=== PATIENT | male | born 1955 | race Caucasian/White ===

== ENCOUNTER → 2023-10-26 06:24 | Day surgery (SDC) | payer MEDICARE, OTHER, SELFPAY | LOC: GI 06:24 | PROVIDERS: ATTENDING PHYSICIAN Internal Medicine | DX: K63.5 Polyp of colon (principal); K63.89 Other specified diseases of intestine; K57.30 Diverticulosis of large intestine without perforation or abscess without bleeding; K64.9 Unspecified hemorrhoids; Z87.19 Personal history of other diseases of the digestive system | CPT/HCPCS: 45380; 88305 ==

== ENCOUNTER 2024-01-08 19:21 | Emergency (ER) | payer MEDICARE, OTHER, SELFPAY ==
[2024-01-08 19:24] VITALS: BP 143/79
[2024-01-08 20:00] LABS: % Basophils 0.2 % (0-2); % Immature Granulocytes 0.7 % (0-0.5); % Lymphocytes 3.5 % (20.5-51.1); % Monocytes 5.5 % (1.7-9.3); % Neutrophils 90.1 % (42.2-75.2); Absolute Immature Granulocytes 0.1 10^3/uL (0-0.05); Absolute Lymphocytes 0.4 10^3/uL (1.2-3.4); Absolute Monocytes 0.7 10^3/uL (0.1-0.6); Absolute Neutrophils 10.9 10^3/uL (1.4-6.5); Hematocrit 44.2 % (39.0-52.0); Mean Corp Hgb Conc. 33.9 g/dL (33.0-37.0); Mean Corpuscular Hgb 28.8 pg (27.0-31.0); Mean Corpuscular Volume 84.8 fL (80.0-94.0); Mean Platelet Volume 10.2 fL (7.4-10.4); Nucleated Red Blood Cells % 0 % (-); Platelet Count 105 10^3/uL (130-400); Red Blood Cell Count 5.21 10^6/uL (4.70-6.10); Red Cell Dist. Width 13.5 % (11.5-14.5); White Blood Cell Count 12.1 10^3/uL (4.8-10.8)
[2024-01-08 20:15] LABS: ALT (SGPT) 371 U/L (0-50); AST (SGOT) 242 U/L (17-59); Albumin 3.7 g/dl (3.5-5.0); Alkaline Phosphatase 48 U/L (38-126); Blood Urea Nitrogen 57 mg/dl (9-20); Calcium 8.5 mg/dl (8.4-10.2); Carbon Dioxide 19 mmol/L (22-30); Chloride 102 mmol/L (98-107); Glucose 145 mg/dl (70-99); Lipase 173 U/L (23-300); Potassium 4.4 mmol/L (3.5-5.1); Sodium 129 mmol/L (135-145); Total Protein 6.5 g/dl (6.3-8.2); eGFR 16.11
[2024-01-08 20:48] VITALS: BMI 34.5
--- NOTE | 2024-01-08 20:55 | EDRN ---
Pt had abdominal pain yesterday for 8 hours with pain radiating in between his shoulder bladers. Pt feels he empties his bladder when he urinates but notes it is darker and cloudier. No blood in urine. Pt came to ED because now because he waited
too long in July and was dehydrated. Pt has been drinking more water to try and clear it up. Chills, no fever. No sob, cp, abd pain now, dizziness, weakness, n/v/d/constipation.
--- NOTE | 2024-01-08 21:10 | ED.GENMED ---
History of Present Illness
General
Chief Complaint: Abdominal Pain
Source: patient
Exam Limitations: none
Time Seen by Provider: 01/08/24 20:48
Travel History
Have you had any contact with someone who has COVID-19?: No
Do you have any symptoms of coronavirus? Fever > 100 degrees, chills, cough, shortness of breath, sore throat, loss of taste or smell, muscle aches, or headache?: Yes
Symptoms:: fever, cough
History of Present Illness
History of Present Illness:
68-year-old male with history of chronic kidney disease presents with abdominal pain and shoulder blade pain starting yesterday. He also noted darker colored urine that was cloudy. He noted chills. He still does not feel quite well. His urine
has not cleared despite drinking plenty clear liquids. Abdominal pain has calmed down. The pain in the shoulder blades was not pleuritic. No other complaints at this time
Past History
Past History
ED Past Medical History: Cancer, HTN and Other (prostate CA, DVT, Polycystic kidney disease, diverticulosis)
ED Past Surgical History: Other (Prostatectomy)
Social History
Tobacco: Former smoker
Alcohol: None
Personal:
Living: with family
Phy Exam
Physical Exam
Physical Exam:
General: Well-appearing male no acute respiratory distress
HEENT: NC, sclera icteric
Heart; RRR, no murmurs
Lungs; CTA clear, no wheeze
Abdomen is slightly distended grossly nontender normal bowel sounds no guarding no costovertebral angle tenderness
Extremities: No cyanosis
Skin: Slightly jaundiced
Course
Orders/Labs/Results
Orders:
Orders
01/08/24 19:55
Complete Blood Count/With Diff Urgent
Comprehensive Metabolic Panel Urgent
Lipase Urgent
01/08/24 21:08
Urinalysis Reflex To Culture Urgent
Date Specimen was Collected: 01/08/24
Time Specimen was Collected: 21:05
Urine Microscopic Reflex Cult Urgent
US Abdomen Complete/Upper Urgent
Comment:
Reason For Exam: abodminal pain, elevated LFT
01/08/24 21:15
0.9% Sodium Chloride 500 ml [Nss] 500 ml IV BOLUS
01/08/24 22:52
EKG [Electrocardiogram (*1)] Urgent
Reason for Study: Palpitations
EKG- Treatment ONCE
01/08/24 23:04
CT Abd/pel Without Iv Or Oral Urgent
Comment:
Reason For Exam: abdominal and back pain
Abnormal Lab Results
01/08/24 01/08/24
19:55 21:08
WBC 12.1 H 10^3/uL
(4.8-10.8)
Plt Count 105 L 10^3/uL
(130-400)
Abs Immat Gran (auto) 0.1 H 10^3/uL
(0-0.05)
Absolute Neuts (auto) 10.9 H 10^3/uL
(1.4-6.5)
Absolute Lymphs (auto) 0.4 L 10^3/uL
(1.2-3.4)
Absolute Monos (auto) 0.7 H 10^3/uL
(0.1-0.6)
Immature Gran % 0.7 H %
(0-0.5)
Neutrophils % 90.1 H %
(42.2-75.2)
Lymphocytes % 3.5 L %
(20.5-51.1)
Sodium 129 L mmol/L
(135-145)
Carbon Dioxide 19 L mmol/L
(22-30)
BUN 57 H mg/dl
(9-20)
Creatinine 3.9 H mg/dL
(0.7-1.3)
Glucose 145 H mg/dl
(70-99)
Total Bilirubin 6.0 H mg/dl
(0.2-1.3)
AST 242 H U/L
(17-59)
ALT 371 H U/L
(0-50)
Ur Occult Blood Reflex 1+ A
(Negative)
Urine Bilirubin 1+ A
(Negative)
Urine Urobilinogen 2+ A
(Neg - 1+)
Leukocyte Esterase Rfl Trace A
(Negative)
Urine Bacteria (Reflex) Few A
(Negative)
01/08/24 19:55
01/08/24 19:55
Vital Signs
Initial and Last Documented VS:
Initial Vital Signs
Temp Pulse Resp BP Pulse Ox
98.9 F 114 18 143/79 96
01/08/24 19:24 01/08/24 19:24 01/08/24 19:24 01/08/24 19:24 01/08/24 19:24
Last Documented Vital Signs
Temp Pulse Resp BP Pulse Ox
98.9 F 82 24 106/73 96
01/08/24 19:24 01/09/24 00:59 01/08/24 21:18 01/09/24 00:59 01/08/24 19:24
MDM/Problems Addressed
Differential Diagnosis Includes:
Abdominal pain with jaundice. Cholecystitis with choledocholithiasis. Lipase normal. I reviewed prior hospital records. Creatinine today is at baseline 3.9. Bilirubin and transaminases are elevated which is new. Ultrasound abdomen pending
*Critical Care Note
Total Time (30-74mins, 75-104mins- exclusive of procedures): Not Applicable
Update Note
Update Note:
Ultrasound shows cholelithiasis without cholecystitis. Patient does have bilirubin of [address] of the abdomen showed cholelithiasis without cholecystitis. He has also shown known polycystic kidney disease. Patient
reexamined feeling much better pain-free. He has stable vital signs. Will discharge home with close follow-up with GI. Return precautions were given. This is biliary colic as a source of his pain.
ED Attending Note
-
Portions of this chart may have been created with voice recognition software.� Occasional wrong word or��sound alike� substitutions may have occurred due to the inherent limitations of voice recognition software.
Discharge Plan
Departure
Patient Disposition: Home (Routine Discharge)
Date of Disposition: 01/09/24
Time of Disposition: 01:21
Patient with high blood pressure during this ER visit?: No
Discharge Problem:
Biliary colic
Instructions: Gallstones (DC)
Prescriptions:
No Action
omeprazole 40 MG capsule,delayed release(DR/EC)
40 mg PO DAILY
Xarelto 10 MG tablet
10 mg PO QPM Qty: 60 0RF
telmisartan [Micardis] 40 MG tablet
40 mg PO DAILY Qty: 30 1RF
Hold Instructions: Resume on 08/01/23.
Referrals:
Baudilio Carney, [Family Provider] -
Activity Restrictions/Additional Instructions:
The GI office should be calling you to set an appointment. Please return here for worsening symptoms including pain vomiting increased jaundice findings otherwise
Interventions
Interventions:
*Risk Screen - Suicide Last Done: 01/08/24 19:24
*General Assessment Last Done: 01/08/24 19:24
*Neglect/Abuse Screening Last Done: 01/08/24 19:24
ED- Fall Risk Assessment Last Done: 01/08/24 21:19
*ED COVID-19 Vaccine History Last Done: 01/08/24 20:40
LJ-Otybxk-Pntnaxkfux Assessment Last Done: 01/08/24 21:00
Discharge Date and Time
Print Language: KENYAN
[2024-01-08 21:13] LABS: Urine Albumin Trace (Neg - Trace); Urine Bilirubin 1+ (Negative); Urine Character Clear (Clear); Urine Color Yellow; Urine Glucose Negative (Negative); Urine Ketone Negative (Negative); Urine Leukocyte Trace (Negative); Urine Nitrite Negative (Negative); Urine Occult Blood 1+ (Negative); Urine Urobilinogen 2+ (Neg - 1+)
[2024-01-08] MEDS: NSS 500 IV (21:16)
[2024-01-08 21:18] VITALS: BP 130/73
[2024-01-08 21:21] LABS: Urine Bacteria Few (Negative); Urine Red Blood Cell 0-2 /HPF (0-2); Urine Squamous Cell 0-2 /LPF (Few)
[2024-01-08 22:36] VITALS: BP 136/76
[2024-01-09 00:59] VITALS: BP 106/73
== END 2024-01-09 01:50 | disposition home or self-care (01) ==
LOC: EMR 19:21
PROVIDERS: Emergency Medicine; Physician Assistant; EMERGENCY PHYSICIAN Emergency Medicine; FAMILY PHYSICIAN Family Medicine
DX: K80.70 Calculus of gallbladder and bile duct without cholecystitis without obstruction (principal); M25.519 Pain in unspecified shoulder; I12.9 Hypertensive chronic kidney disease with stage 1 through stage 4 chronic kidney disease, or unspecified chronic kidney disease; N18.9 Chronic kidney disease, unspecified; Q61.3 Polycystic kidney, unspecified; K57.90 Diverticulosis of intestine, part unspecified, without perforation or abscess without bleeding; Z79.01 Long term (current) use of anticoagulants; Z85.46 Personal history of malignant neoplasm of prostate; Z86.718 Personal history of other venous thrombosis and embolism; Z87.891 Personal history of nicotine dependence; Z90.79 Acquired absence of other genital organ(s); Z88.3 Allergy status to other anti-infective agents; Z88.0 Allergy status to penicillin
CPT/HCPCS: 99285; 96360; 74176; 76700; 80053; 81003; 81015; 83690; 85025; 93005

== ENCOUNTER 2024-03-11 01:19 | Inpatient (IN) | payer MEDICARE, OTHER, SELFPAY ==
[2024-03-10 15:59] VITALS: BMI 33.1
[2024-03-10 16:03] VITALS: BP 175/101
[2024-03-10 16:19] LABS: % Basophils 0.2 % (0-2); % Eosinophils 0.1 % (0-6); % Immature Granulocytes 0.4 % (0-0.5); % Lymphocytes 8.5 % (20.5-51.1); % Monocytes 3.9 % (1.7-9.3); % Neutrophils 86.9 % (42.2-75.2); Absolute Immature Granulocytes 0.1 10^3/uL (0-0.05); Absolute Lymphocytes 1.1 10^3/uL (1.2-3.4); Absolute Monocytes 0.5 10^3/uL (0.1-0.6); Absolute Neutrophils 11.2 10^3/uL (1.4-6.5); Hematocrit 44.3 % (39.0-52.0); Hemoglobin 14.6 g/dL (13.0-18.0); Mean Corpuscular Hgb 28.6 pg (27.0-31.0); Mean Corpuscular Volume 86.7 fL (80.0-94.0); Mean Platelet Volume 9.9 fL (7.4-10.4); Nucleated Red Blood Cells % 0 % (-); Platelet Count 191 10^3/uL (130-400); Red Blood Cell Count 5.11 10^6/uL (4.70-6.10); Red Cell Dist. Width 14.4 % (11.5-14.5); White Blood Cell Count 12.9 10^3/uL (4.8-10.8)
[2024-03-10 16:36] LABS: ALT (SGPT) 17 U/L (0-50); AST (SGOT) 23 U/L (17-59); Albumin 4.5 g/dl (3.5-5.0); Alkaline Phosphatase 45 U/L (38-126); Blood Urea Nitrogen 64 mg/dl (9-20); Calcium 9.5 mg/dl (8.4-10.2); Carbon Dioxide 17 mmol/L (22-30); Chloride 108 mmol/L (98-107); Glucose 137 mg/dl (70-99); Lipase 168 U/L (23-300); Potassium 5.1 mmol/L (3.5-5.1); Sodium 138 mmol/L (135-145); Total Bilirubin 1.1 mg/dl (0.2-1.3); Total Protein 7.6 g/dl (6.3-8.2); eGFR 17.16
[2024-03-10 18:34] VITALS: BP 140/93
--- NOTE | 2024-03-10 18:40 | ED.GENMED ---
History of Present Illness
General
Chief Complaint: Abdominal Pain
Source: patient
Exam Limitations: none
Time Seen by Provider: 03/10/24 17:55
History of Present Illness
History of Present Illness:
this is a 68 year old male that comes in with c/o gallbladder attack. states that he thinks he is having a gallbladder attack. States that he was here 6 weeks ago and told that he had gallstones. Today he has increased pain which started yesterday
afternoon. States that his abd is also distended. State that he has a low grade fever and chills. States that he was also nauseated. Denies any chest pain, SOB, vomiting, diarrhea, headache, dizziness, urinary burning.
Past History
Past History
ED Past Medical History: Cancer (Prostate CA), GERD, HTN and Other ( DVT, Polycystic kidney disease, diverticulosis)
ED Past Surgical History: Tonsilectomy and Urological (Prostatectomy)
Social History
Tobacco: Former smoker
Alcohol: Occasional
Personal:
Living: with family
Review of Systems
Review of Systems
All Other Systems: ROS reviewed and negative except as documented in HPI and ROS
Constitutional: Reports fever and chills
EENT: Reports no symptoms
Respiratory: Reports no symptoms; Denies cough or trouble breathing
Cardiac: Reports no symptoms; Denies chest pain
ABD/GI: Reports abdominal pain, nausea and other (Feels distended); Denies vomiting or diarrhea
: Reports no symptoms; Denies dysuria, frequency or urgency
Musculoskeletal: Reports no symptoms
Skin: Reports no symptoms
Neurological: Reports no symptoms; Denies dizzy or headache
Psychiatric: Reports no symptoms
Phy Exam
General Physical Exam
General Presentation: no apparent distress
General age: appears stated age
General Skin: warm and dry
General Habitus: normal
General Mental: alert
General Hydration: appears well hydrated
ENT Exam
ENT Exam: TM's normal, pharynx normal and neck supple
Eye Exam
Eye Exam: EOMI
Cardiovascular Exam
Cardiovascular Exam: regular rate/rhythm, no edema and normal peripheral pulses
Pulmonary Exam
Pulmonary Exam: lungs clear, no respiratory distress, no rales, chest non tender, no crackles, no rhonchi, no wheezing and no cough
Gastrointestinal Exam
Gastrointestinal Exam: soft, no organomegaly, no pulsatile mass, tender (right upper abd tenderness with palpation) and other (Distention, Hypoactive bowel sounds)
Musculoskeletal Exam
Musculoskeletal Exam: full ROM and no edema
Skin Exam
Skin Exam: normal color, warm/dry, no rash and no petechia
Psychiatric Exam
Psychiatric Exam: normal mood/affect
Course
Orders/Labs/Results
Orders:
Orders
03/10/24 16:13
CMP [Comprehensive Metabolic Panel] Urgent
Complete Blood Count/With Diff Urgent
Lipase Urgent
03/10/24 18:39
US Abdomen Complete/Upper Urgent
Comment: Check also for ascites please
Reason For Exam: right upper abd pain, Abd distention
03/10/24 20:35
Iohexol [Omnipaque] See Protocol PO NOW STA
03/10/24 20:36
CT Abd/pel (oral only)-DH Only Urgent
Comment:
Reason For Exam: Upper abd pain
HYDROmorphone [Dilaudid] 0.5 mg IV NOW STA
Ondansetron Injectable [Zofran] 4 mg IV NOW STA
03/11/24 00:05
Consult Urology [UROLOGY CONSULT] Urgent
Consulting Provider: Trey Harp
Was physician already notified: Yes
03/11/24 00:40
Admit/Transfer Patient As Directed
Co-Sign Provider:
Level of Care: Inpatient admission
Assign to:: Medical/Surgical
Physician / Group: Matthew
Diagnosis: Hemorrhagic PKD
Reason for Hospitalization: Hemorrhagic PKD
Expected length of stay greater than two midnights?: Yes
ELOS- Estimated Length of Stay in days: 2
I certify the patient meets the requirements for IP care: Yes
03/11/24 00:41
Code Status As Directed
Resuscitation Status: Full Code
03/11/24 00:42
HYDROmorphone [Dilaudid] 0.5 mg IV NOW STA
03/11/24 01:21
Acetaminophen [Tylenol] 650 mg PO Q4HPRN PRN
03/11/24 01:21
Activity As Directed
Activity Level: Ambulate
With Assistance
Bladder Scan As Directed
Follow Bladder Retention/Intermittent Cath Algorithm?: Yes
PRN if no void in __ hours: 6
Frequency: Per Retention Algorithm
If Bladder Scan Result >: 400
then:: Straight cath
I/O [Intake/ Output] As Directed
Frequency: Per unit guidelines
Pneumatic Compression Sleeves As Directed
Type: Knee high
Straight Cath As Directed
Frequency: Per Retention Algorithm
Additional Instructions: straight cath as needed per acute urinary retention algorithm for 24 hrs
Additional Instructions: for bladder scan greater than 400 mL
Vital Signs As Directed
Frequency: Per unit guidelines
Oxygen Therapy [O2 Therapy] [RESP] Routine
Titrate/Wean O2 to maintain O2 sat greater than (%): 94
Ot Eval And Treat Routine
PT Consult [Pt Eval And Treat] Routine
Activity Level: Ambulate
With Assistance
DX Deep Vein Thrombosis Video Routine
03/11/24 05:00
HYDROmorphone [Dilaudid] 0.5 mg IV Q4HPRN PRN
03/11/24 Breakfast
Regular
At Your Request: Full Participation
Basic Metabolic Panel IN AM
Complete Blood Count/No Diff IN AM
03/11/24 08:00
Losartan [Cozaar] 50 mg PO DAILY
Pantoprazole [Protonix] 40 mg PO DAILY
Abnormal Lab Results
03/10/24
16:13
WBC 12.9 H 10^3/uL
(4.8-10.8)
Abs Immat Gran (auto) 0.1 H 10^3/uL
(0-0.05)
Absolute Neuts (auto) 11.2 H 10^3/uL
(1.4-6.5)
Absolute Lymphs (auto) 1.1 L 10^3/uL
(1.2-3.4)
Neutrophils % 86.9 H %
(42.2-75.2)
Lymphocytes % 8.5 L %
(20.5-51.1)
Chloride 108 H mmol/L
(98-107)
Carbon Dioxide 17 L mmol/L
(22-30)
BUN 64 H mg/dl
(9-20)
Creatinine 3.7 H mg/dL
(0.7-1.3)
Glucose 137 H mg/dl
(70-99)
03/10/24 16:13
03/10/24 16:13
Leukocytosis, carbon dioxide low. Chronic renal failure (not on dialysis yet), Glucose nonfasting. Lipase normal at 168
Vital Signs
Initial and Last Documented VS:
Initial Vital Signs
Temp Pulse Resp BP Pulse Ox
99.1 F 111 18 175/101 95
03/10/24 16:03 03/10/24 16:03 03/10/24 16:03 03/10/24 16:03 03/10/24 16:03
Last Documented Vital Signs
Temp Pulse Resp BP Pulse Ox
98.4 F 96 16 145/90 94
03/11/24 01:41 03/11/24 01:41 03/11/24 01:41 03/11/24 01:41 06/30/24 01:52
MDM/Problems Addressed
Differential Diagnosis Includes:
Gallbladder disease, Ascites, Kidney failure
MDM/Problems Addressed:
This is a 68 year old male that comes in with c/o abd pain that started yesterday. States that his abd is also distended.
Will check labs and get US.
Back into see patient. Reviewed US and explained that he does have some gallstones but there is no wall thickening. This could be related to his PCKD as cyst are also noted on the Liver at this time. is concerned that there is something going
on with his bowels as things always get blamed on his kidney cyst and feels that something could be missed. Will get CT of abd/pelvis.
CT cont- has increased in size, now measuring 5.2 cm in the SI dimension (previously 3.7cm), and there is new local mass effect on the adjacent right hepatic lobe (202:35). Recommend urology consultation. Numerous bilateral hyperdense renal cystic
lesions. These may represent hemorrhagic cysts, solid renal neoplasm cannot be excluded. MRI is recommended for further characterization, if not recently acquired. Adisional findings: Polycystic liver also seen. Cholelithiasis. Dependent
atelectasis. DJD> DISH, Gynecomastia. Colonic diverticulosis, Duodenal diverticulm. Post prostatectomy. Vascular calcifications.
Back into see patient and reviewed CT scan. Will admit to hospitalist and put Urology on Consult.
Chronic conditions affecting care: Kidney disease
Acute Exacerbation and/or Progression of Chronic Illness: Kidney disease
*Radiology
Radiology exam reviewed: radiology read reviewed (US-Polycystic kidney disease wit hhepatic involvement again noted. Contracted gallbladder containing stones. No findings to suggest gallbladder wall thickening or biliary tract dilation. Negative
sonographic Regalado's sign. No findings to suggest ascites. Pancreas, abdominal aorta and IVC ) and other (US cont- significantly obscured, most likely as a result of overlying bowel gas. Mild splenomegaly. CT night hawk-Polycystic kidneys. New
layering hemorrhage within the right upper pole cyst most likely represents new acute hemorrhage within the cyst. This cyst with new acute hemorrhage has )
*Pulse Oximetry
Patient hypoxic: no
*EKG
Interpreted by ED Provider?: NA
Rate: EKG- N/A
*Stone Hand Interpretation
Rate: Stone Hand- N/A
*Critical Care Note
Total Time (30-74mins, 75-104mins- exclusive of procedures): Not Applicable
ED Attending Note
-
Portions of this chart may have been created with voice recognition software.� Occasional wrong word or��sound alike� substitutions may have occurred due to the inherent limitations of voice recognition software.
Discharge Plan
Departure
Patient Disposition: Admit
Date of Disposition: 03/11/24
Time of Disposition: 00:06
Admit to: Med/Surg
Presentation/result/management discussed w/ accepting MD/DO: Hospitalist
Patient with high blood pressure during this ER visit?: Yes
Condition: Good
Covid-19: Not Applicable
Discharge Problem:
Abdominal pain, Polycystic kidney disease wit hemorrhage
Interventions
Interventions:
*Risk Screen - Suicide Last Done: 03/10/24 18:47
*General Assessment Last Done: 03/10/24 18:47
*Neglect/Abuse Screening Last Done: 03/10/24 18:47
ED- Fall Risk Assessment Last Done: 03/10/24 18:47
*ED COVID-19 Vaccine History Last Done: 03/10/24 16:06
*Nursing Disposition Last Done: 03/11/24 01:15
VR-Rzyytd-Lphnrpmzzi Assessment Last Done: 03/10/24 18:47
Discharge Date and Time
Discharge Date/Time: 03/11/24 01:15
[2024-03-10 19:27] VITALS: BP 155/86
[2024-03-10 20:00] VITALS: BP 142/92
[2024-03-10] MEDS: DILAUDID 0.5 MG IV (20:54)
[2024-03-10] MEDS: ZOFRAN 4 MG IV (20:59)
[2024-03-10] MEDS: OMNIPAQUE 50 ML PO (21:00)
[2024-03-10 22:00] VITALS: BP 122/88
[2024-03-10 23:00] VITALS: BP 116/76
[2024-03-11 00:06] VITALS: BP 152/86
--- NOTE | 2024-03-11 00:42 | HPS.HSE ---
Family Physician
-
Family Physician: Baudilio Carney
Chief Complaint
-
R Flank Pain
History of Present Illness
Patient is a 68y M with PMH significant for ADPKD who presents to ED complaining of R flank pain that started yesterday. Patient states that he has had 30 hours of uninterrupted / severe R flank and RUQ pain. Pain does not change with changes
in position. His pain increased with deep breathing, coughing or hiccups. He has felt nauseated without emesis. Pos chills without fever. He denies any diarrhea, urinary symptoms or hematuria. Patient had similar symptoms on the L side about
one year ago that were due to large hemorrhagic cyst.
He takes Xarelto for history of multiple DVTs and his last dose of this was Tuesday PM.
Medical History
Past Medical History
Past Medical History: Reports Other
Additional Past Medical History:
ADPKD
CKD V
Hypertension
Prostate Cancer
Recurrent DVT (x 3)
Cholelithiasis
Past Surgical History: Reports Other
Additional Past Surgical History:
Radical Prostatectomy
T&A
Social History
Tobacco: Former Smoker (Quit smoking 5 years ago. Approx 40 pack years total use.)
Alcohol: Occasional
Drug: None
Personal:
Living: With Family
Family History
Family History: Other (Father: CVA, Prostate Cancer Mother, Sister, Son: PKD)
Allergies / Home Medications
Allergies reflects when Allergies were last updated in [employer].
Home Medications with original date entered in [employer]
Allergy/Medication List:
Allergies
Allergy/AdvReac Type Severity Reaction Status Date / Time
Cephalosporins Allergy Unknown Verified 03/10/24 17:16
penicillin V Allergy Hives Verified 03/10/24 17:16
Penicillins Allergy Hives Verified 03/10/24 17:16
Home Medications
omeprazole 40 mg capsule,delayed release 40 mg PO DAILY Gastrointestinal issue 09/13/18
rivaroxaban 10 mg tablet (Xarelto) 10 mg PO QPM #60 tabs 06/29/21
telmisartan 40 mg tablet (Micardis) 40 mg PO DAILY #30 tabs 06/29/21
Review of Systems
-
History Source: Patient
A 12 point ROS was completed and negative except as noted: Yes
Constitutional: Reports Chills; Denies Fever or Fatigue
Respiratory: Denies Cough or Trouble Breathing
Cardiac: Denies Chest Pain or Palpitations
Abdomen/GI: Reports Abdominal Pain and Nausea; Denies Vomiting, Diarrhea, Constipated, Bloody Stools or Black Stools
: Reports Flank Pain; Denies Dysuria or Frequency
Neurological: Denies Dizzy or Headache
Psych: Denies Depression or Anxiety
Physical Exam
Vital Signs
Vital Signs
Temp Pulse Resp BP Pulse Ox
99.0 F 102 22 116/76 95
03/10/24 19:52 03/10/24 23:00 03/10/24 23:00 03/10/24 23:00 03/10/24 23:26
Physical Exam
General: Other (68y M in mild distress due to pain.)
HEENT: Moist mucous membranes
Respiratory: Clear; No Wheezes, Rales or Rhonchi
Cardiac: S1/S2 and Regular Rhythm; No Murmur
GI: Other (Softly distended. Pos RUQ tenderness without rebound / guarding. No ecchymoses.)
Genito-urinary: Other (Pos R CVAT.)
Musculoskeletal: No Clubbing, No Cyanosis and No Edema
Neuro: AO x 3
Laboratory Results
-
03/10/24 16:13
03/10/24 16:13
Laboratory Results
Total Bilirubin 1.1 mg/dl (0.2-1.3) 03/10/24 16:13
AST 23 U/L (17-59) 03/10/24 16:13
ALT 17 U/L (0-50) 03/10/24 16:13
Alkaline Phosphatase 45 U/L (38-126) 03/10/24 16:13
Lipase 168 U/L (23-300) 03/10/24 16:13
Impression/Plan
-
A/P: Patient is a 68y M with PMH significant for ADPKD, CKD V and hypertension who presents to ED complaining of 30 hours of R flank and RUQ pain.
ADPKD
Hemorrhagic Cyst secondary to the above
- Admit for further evaluation and treatment.
- Hold Xarelto acutely given bleeding / pain.
- Supportive care including pain control.
- Urology evaluation - though doubt intervention will be required.
- Follow for clinical improvement.
CKD V
- Stable. Renal function is at / near known baseline.
- Continue current ARB and follow for any changes.
- Avoid nephrotoxic medications, hypotension, etc.
- Patient is in the process of transplant evaluation at [place].
Benign Hypertension
- Stable. Continue telmisartan with holding parameters.
History of Recurrent DVT
DVT Prophylaxis
- Holding Xarelto acutely given active bleeding / hemorrhagic cyst.
- Will need to restart after acute episode given significant VTE history.
- SCDs for now for prophylaxis.
Code Status: Full
[2024-03-11] MEDS: DILAUDID 0.5 MG IV ×3 (00:54→08:53)
[2024-03-11 01:00] VITALS: BP 140/81
--- NOTE | 2024-03-11 01:20 | PTCARENOTE ---
Pt arrived via stretcher from ED. Pt was able to ambulate to bed and standing scale. Pt AAOx3. VSS. pain level 5/10. Dilaudid 0.5 IV given at 0054 in ED Pts at bedside. Bed in lowest position and locked. Call dutton within reach.
[2024-03-11 01:41] VITALS: BP 145/90; BMI 32.5
[2024-03-11 06:18] LABS: Hematocrit 40.9 % (39.0-52.0); Hemoglobin 13.5 g/dL (13.0-18.0); Mean Corpuscular Hgb 28.5 pg (27.0-31.0); Mean Corpuscular Volume 86.5 fL (80.0-94.0); Mean Platelet Volume 10.3 fL (7.4-10.4); Platelet Count 167 10^3/uL (130-400); Red Blood Cell Count 4.73 10^6/uL (4.70-6.10); Red Cell Dist. Width 14.7 % (11.5-14.5); White Blood Cell Count 12.1 10^3/uL (4.8-10.8)
[2024-03-11 06:41] LABS: Blood Urea Nitrogen 66 mg/dl (9-20); Calcium 8.9 mg/dl (8.4-10.2); Carbon Dioxide 17 mmol/L (22-30); Chloride 106 mmol/L (98-107); Estimated Creatinine Clearance 22 ml/min; Glucose 117 mg/dl (70-99); Potassium 5.7 mmol/L (3.5-5.1); Sodium 134 mmol/L (135-145); eGFR 17.74
[2024-03-11 07:32] VITALS: BP 134/70
[2024-03-11] MEDS: COZAAR 50 MG PO (08:47)
[2024-03-11] MEDS: PROTONIX 40 MG PO (08:47)
--- NOTE | 2024-03-11 09:18 | W.PN.HOSP.TC ---
Today's Communication/Plan
-
Discharge
Assessment / Plan
Assessment / Plan
Gen-AAOx3, NAD
HEENT-NC, AT, anicteric, clear oral mm
Neck-supple
CV-reg, no M, +S1/S2
Lungs-clear B/L
Abd-soft, NT, ND
Ext-no edema
Musculoskeletal-no cyanosis, clubbing
Skin-warm and dry
Neuro-grossly non-focal
Psych-calm, cooperative
Right flank pain likely due to hemorrhagic cysts in the kidney due to -polycystic kidney disease, hemorrhage related to anticoagulation with Xarelto. Hold Xarelto for now. Hemoglobin normal. Continue analgesics. Discussed with urology. No
intervention indicated.
Hyperkalemia -stop losartan. Give a dose of Lokelma. BMP on Tuesday. He takes telmisartan at home, hold on discharge given hyperkalemia until BMP resulted on Wednesday 03/14. Discussed with patient.
History of lower extremity DVTs -hold Xarelto until Tuesday. Discussed with patient.
CKD 4 -stable.
Essential hypertension -stable.
Obesity due to excess calories
Full code
Dispo -medically stable for discharge today. Outpatient follow-up.
31 min spent in discharge process.
Anticipated Discharge: Today
Subjective/Interval History
-
Date of Service: March 11, 2024
Patient seen and examined. Complaining of right flank pain.
Objective Data
-
Labs:
Laboratory Results
03/11/24
06:12
WBC 12.1 H
Hgb 13.5
Hct 40.9
Plt Count 167
Sodium 134 L
Potassium 5.7 H
Chloride 106
Carbon Dioxide 17 L
BUN 66 H
Creatinine 3.6 H
Glucose 117 H
Calcium 8.9
Vital Signs:
Vital Signs
Temp Pulse Resp BP Pulse Ox
98.4 F 87 17 134/70 97
03/11/24 07:32 03/11/24 07:32 03/11/24 07:32 03/11/24 07:32 03/11/24 07:32
Review of Systems
-
History Source: Patient
All other systems: Reviewed and negative
--- NOTE | 2024-03-11 09:34 | W.DS.TRANS ---
DC Summary - Vending Machine Refiller
-
Discharge Instructions:
Discharge Diagnosis/Procedures Hemorrhagic kidney cyst, hyperkalemia
Diet Regular
Activity As tolerated
Driving Restrictions As prior to admission
Bathing Restrictions None
Instructions:
Stand-Alone Forms:
Changes to Home Medications: No
Discharge Medications:
DC Medications w/original date entered in [employer])
omeprazole 40 mg capsule,delayed release 40 mg PO DAILY Gastrointestinal issue 09/13/18
rivaroxaban 10 mg tablet (Xarelto) 10 mg PO QPM #60 tabs 06/29/21
telmisartan 40 mg tablet (Micardis) 40 mg PO DAILY #30 tabs 06/29/21
tramadol 50 mg tablet 50 mg PO Q6H PRN severe pain #14 tabs 03/11/24
Home Medication Changes
Pending Results: No
--- NOTE | 2024-03-11 09:54 | W.PN.URO.CBU ---
Today's Communication / Plan
-
pr hospitalist
Assessment / Plan
-
blled aquilino cyst hold xarelto see neph donot instrument home today as stable
Diagnosis
-
Date of Service: March 11, 2024
-
Patient Diagnosis:hemorrhaf=gewoith pain rt renal upper pole cyst i pt with apckd ionxarelto
Post Op Day:
Subjective
-
ruq discomfort
Objective
-
Vital Signs
Temp Pulse Resp BP Pulse Ox
98.4 F 87 17 134/70 97
03/11/24 07:32 03/11/24 07:32 03/11/24 07:32 03/11/24 07:32 03/11/24 07:32
Laboratory Results
03/11/24 06:12
03/11/24 06:12
Review of Systems
-
Abdomen/GI: Abdominal Pain
Physical Exam
-
General - well developed, well nourished, no acute distress
Chest - clear bilaterally
Abdomen - soft, non-tender, positive bowel sounds, no CVAT, no incisional pain or distention
Genitalia - normal
Rectal - normal
Skin - warm & dry with no rash
Neuro - AOx3, no motor deficits
Extremities - no clubbing, no cyanosis, no edema
Incision - clean, dry
Dressing - clean, dry, intact
Care Review
Data Reviewed
Discussed with: Hospitalist
CT Scan: Image Pers Reviewed
[2024-03-11] MEDS: LOKELMA 10 GRAM PO (09:59)
[2024-03-11 11:30] VITALS: BP 132/70
--- NOTE | 2024-03-11 13:36 | CM ---
Patient seen at bedside. Patient stated that he does not have any needs and will be going home today with his . Patient PCP is Dr. Carney and he uses the [facility] in [place]. Patient was given IMM in ed/signed at that time and reviewed form with
CM. Patient with no questions for discharge at this time.
Plan; home with no needs.
== END 2024-03-11 12:20 | disposition home or self-care (01) | DRG 699 ==
LOC: 2 SOUTH 01:19
PROVIDERS: Emergency Medicine; ADMITTING PHYSICIAN Hospitalist; ATTENDING PHYSICIAN Hospitalist; EMERGENCY PHYSICIAN Student in an Organized Health Care Education/Training Program; FAMILY PHYSICIAN Family Medicine
DX: Q61.2 Polycystic kidney, adult type (principal); D68.32 Hemorrhagic disorder due to extrinsic circulating anticoagulants; I12.0 Hypertensive chronic kidney disease with stage 5 chronic kidney disease or end stage renal disease; N18.5 Chronic kidney disease, stage 5; E66.09 Other obesity due to excess calories; Z68.33 Body mass index [BMI] 33.0-33.9, adult; T45.515A Adverse effect of anticoagulants, initial encounter; E87.5 Hyperkalemia; Z79.01 Long term (current) use of anticoagulants; Z79.899 Other long term (current) drug therapy; Z86.718 Personal history of other venous thrombosis and embolism; Z87.891 Personal history of nicotine dependence; Z87.19 Personal history of other diseases of the digestive system; Z90.79 Acquired absence of other genital organ(s); Z88.0 Allergy status to penicillin; Z88.1 Allergy status to other antibiotic agents
CPT/HCPCS: 74176; 76700; 80048; 80053; 83690; 85025; 85027; 96374; 96375; 99285